=== PATIENT | male | born 1945 | race Caucasian/White ===

== ENCOUNTER 2018-10-08 00:12 | Inpatient (IN) ==
[2018-10-08 01:33] LABS: Bilirubin,Urine Negative (Negative); Clarity,Urine Clear (Clear); Color,Urine Yellow (Yellw/Straw); Glucose,Urine (UA) Negative (Negative); Leukocyte Esterase,Urine Negative (Negative); Nitrite,Urine Negative (Negative); Urobilinogen,Urine 0.2 mg/dL (Less than 2)
[2018-10-08 01:39] LABS: Hematocrit 42.9 % (39.0-51.0); Hemoglobin 14.7 gm/dL (13.0-17.0); Mean Corpuscular HGB Conc 34.3 % (32.0-36.0); Mean Corpuscular Hemoglobin 32.9 pg (27.0-34.0); Mean Corpuscular Volume 95.7 fL (80.0-100.0); Mean Platelet Volume 7.3 fL (7.0-11.0); Platelet Count 243 th/mm3 (150-450); Red Blood Count 4.49 mil/mm3 (4.50-5.90); Red Cell Distribution Width 12.4 % (11.6-17.2); White Blood Count 11.6 th/mm3 (4.0-11.0)
[2018-10-08 01:41] LABS: Chloride 104 meq/L (98-107); Potassium 4.3 meq/L (3.5-5.1); Sodium 137 meq/L (136-145)
[2018-10-08 01:44] LABS: Squamous Epithelial Cell,Urine 0-5 /hpf (0-5); WBC,Urine 0-5 /hpf (0-5)
[2018-10-08 01:44] LABS: Calcium 8.6 mg/dL (8.5-10.1)
[2018-10-08 01:45] LABS: Albumin 3.8 g/dL (3.4-5.0); Anion Gap 6 meq/L (5-15); Blood Urea Nitrogen 39 mg/dL (7-18); Carbon Dioxide 27.3 meq/L (21.0-32.0); Glucose,Random 122 mg/dL (74-106)
[2018-10-08] MEDS ORDERED: Ketorolac Inj 30 MG/ML (IVP) Vial IV.PUSH ONE (01:46)
--- NOTE | 2018-10-08 01:47 | ED ---
HPI General Chief complaint: Ear Stated complaint: Left ear pain Time Seen by Provider: 10/08/18 00:46 Source: patient Mode of arrival: ambulatory Limitations: no limitations History of Present Illness HPI narrative: Patient has had significant problem with left ear with infection and has had prolonged antibiotic and other treatment. Patient states pain is increasing in severity. Medical records reviewed Related Data Home Medications Medication Instructions Recorded Confirmed amlodipine 5 mg PO DAILY 10/08/18 10/08/18 atorvastatin 10 mg PO DAILY 10/08/18 10/08/18 benazepril 5 mg PO DAILY 10/08/18 10/08/18 fenofibrate 40 mg PO DAILY 10/08/18 10/08/18 gabapentin 600 mg PO DAILY 10/08/18 10/08/18 insulin aspart U-100 [Novolog 39 unit SUBCUT QPM 10/08/18 10/08/18 Flexpen U-100 Insulin] insulin glargine [Lantus U-100 10 unit SUBCUT TID PRN 10/08/18 10/08/18 Insulin] Allergies Allergy/AdvReac Type Severity Reaction Status Date / Time No Known Allergies Allergy Verified 10/08/18 00:56 Review of Systems ROS: all other systems reviewed are negative [facility] Medical History Medical History History of high blood pressure (Acute) History of high cholesterol (Acute) History of neuropathy (Acute) Hx of diabetes mellitus (Acute) Surgical History Surgical History History of bilateral knee replacement (Acute) Hx of spinal fusion (Acute) Social History Social History Substance History: No History of Abuse Smoking Status: Former smoker Tobacco Type: Cigarettes How Often Do You Have a Drink Containing Alcohol: Never Recent Travel in [facility] within the Last 8 Weeks: No Recent Out of Country Travel within the Last 8 Weeks: No Immunization History Tetanus Immunization: <5 Years Exam Narrative Exam Narrative: GENERAL: Alert and oriented SKIN: Focused skin assessment warm/dry. HEAD: Atraumatic. Normocephalic. Significant percussion tenderness to left mastoid EYES: Pupils equal and round. No scleral icterus. No injection or drainage. ENT: No nasal bleeding or discharge. Mucous membranes pink and moist. Erythematous eardrum with scar tissue NECK: Trachea midline. No JVD. CARDIOVASCULAR: Regular rate and rhythm. No murmur appreciated. RESPIRATORY: No accessory muscle use. Clear to auscultation. Breath sounds equal bilaterally. GASTROINTESTINAL: Abdomen soft, non-tender, nondistended. Hepatic and splenic margins not palpable. NEUROLOGICAL: Awake and alert. No obvious cranial nerve deficits. Motor grossly within normal limits. Normal speech. PSYCHIATRIC: Appropriate mood and affect; insight and judgment normal. Course Initial Documented Vital Signs Temperature 98.2 F 10/08/18 00:24 Pulse Rate 94 H 10/08/18 00:24 Respiratory Rate 18 10/08/18 00:24 Blood Pressure 182/90 H 10/08/18 00:24 Pulse Oximetry 96 10/08/18 00:24 Last Documented Vital Signs Temperature 98.2 F 10/08/18 00:24 Pulse Rate 86 10/08/18 02:27 Respiratory Rate 16 10/08/18 02:27 Blood Pressure 132/87 10/08/18 02:27 Pulse Oximetry 96 10/08/18 02:27 Medical Decision Making MDM Narrative Medical decision making narrative: Patient has mastoiditis and is being treated with IV antibiotics. Patient admitted with need for neurosurgeon and ENT consult. Medical Screen Exam Complete: Yes Emergency Medical Condition: Yes Lab Data Result diagrams: 10/08/18 01:20 10/08/18 01:20 Lab Results 10/08/18 10/08/18 10/08/18 Range/Units 01:15 01:20 01:20 CBC w Diff Slide review pending WBC 11.6 H (4.0-11.0) th/mm3 RBC 4.49 L (4.50-5.90) mil/mm3 Hgb 14.7 (13.0-17.0) gm/dL Hct 42.9 (39.0-51.0) % MCV 95.7 (80.0-100.0) fL MCH 32.9 (27.0-34.0) pg MCHC 34.3 (32.0-36.0) % RDW 12.4 (11.6-17.2) % Plt Count 243 (150-450) th/mm3 MPV 7.3 (7.0-11.0) fL WBC Differential Manual diff final Seg Neuts % (Manual) 78 H (16-70) % Lymphocytes % (Manual) 17 (9-44) % Monocytes % (Manual) 3 (0-8) % Eosinophils % (Manual) 2 (0-4) % Abs Neuts (Manual) 9.0 H (1.8-7.7) th/mm3 Differential Comment . Platelet Estimate Normal (Normal) Platelet Morphology Normal (Normal) RBC Morphology Normal (Normal) Sodium 137 (136-145) meq/L Potassium 4.3 (3.5-5.1) meq/L Chloride 104 (98-107) meq/L Carbon Dioxide 27.3 (21.0-32.0) meq/L Anion Gap 6 (5-15) meq/L BUN 39 H (7-18) mg/dL Creatinine 1.80 H (0.60-1.30) mg/dL Estimated GFR 37 L (>89) mL/min Random Glucose 122 H (74-106) mg/dL Calcium 8.6 (8.5-10.1) mg/dL Total Bilirubin 0.5 (0.2-1.0) mg/dL AST 26 (15-37) U/L ALT 27 (12-78) U/L Alkaline Phosphatase 43 L (45-117) U/L C-Reactive Protein 0.45 H (0.00-0.30) mg/dL Total Protein 7.4 (6.4-8.2) g/dL Albumin 3.8 (3.4-5.0) g/dL Urine Color Yellow (Yellw/Straw) Urine Clarity Clear (Clear) Urine pH 6.0 (5.0-8.5) Ur Specific [place] 1.020 (1.002-1.035) Urine Protein Negative (Neg-Trace) mg/dL Urine Glucose (UA) Negative (Negative) mg/dL Urine Ketones Negative (Negative) mg/dL Urine Occult Blood Small H (Negative) Urine Nitrate Negative (Negative) Urine Bilirubin Negative (Negative) Urine Urobilinogen 0.2 (Less than 2) mg/dL Ur Leukocyte Esterase Negative (Negative) Urine RBC 4-15 H (0-3) /hpf Urine WBC 0-5 (0-5) /hpf Ur Squamous Epith Cells 0-5 (0-5) /hpf Micro UA Comment Culture not ind Ur Microscopic Review Microscopic reviewed Urine Culture Comments Culture not ind Imaging Data Radiologist's impression: Temporal Bone CT 10/08/18 01:43 CONCLUSION: 1. Moderate severity partial opacification of the mastoid air cells on the left. Partial opacification of the external canal on the left with thickening of the left-sided tympanic membrane. Middle ear is clear. 2. Right-sided temporal bone within normal limits. 3. Frontal, sphenoid, ethmoid, and maxillary sinus disease Discharge Plan Discharge Disposition Patient Disposition: ED Admit(ED Internal Use Only) Discharge Condition Condition: Stable Discharge Order Discharge Orders: ED Use Only Admit Order (Routine); Ordered 10/08/18 Ordered By: Mt Petty Discharge Details Diagnosis: Acute mastoiditis Physicians Team ED Provider: Mt Petty Primary Care Provider: Mode Man Rxs /Orders / Referrals /Forms Prescriptions: No Action gabapentin 600 mg Tablet 600 mg PO DAILY RF: 0 insulin glargine [Lantus U-100 Insulin] 100 unit/mL Solution 10 unit SUBCUT TID PRN (Reason: Hyperglycemia) RF: 0 atorvastatin 10 mg Tablet 10 mg PO DAILY RF: 0 benazepril 5 mg Tablet 5 mg PO DAILY RF: 0 amlodipine 2.5 mg Tablet 5 mg PO DAILY RF: 0 insulin aspart U-100 [Novolog Flexpen U-100 Insulin] 100 unit/mL Insulin Pen 39 unit SUBCUT QPM RF: 0 fenofibrate 40 mg Tablet 40 mg PO DAILY RF: 0 Status ED Status: With Doctor
[2018-10-08 01:48] LABS: Alanine Aminotransferase 27 U/L (12-78); Aspartate Aminotransferase 26 U/L (15-37); C-Reactive Protein 0.45 mg/dL (0.00-0.30); Glomerular Filtration Rate 37 mL/min (>89)
[2018-10-08 01:50] LABS: Total Protein 7.4 g/dL (6.4-8.2)
[2018-10-08 01:51] LABS: Alkaline Phosphatase 43 U/L (45-117)
[2018-10-08 01:54] LABS: Eosinophils 2 % (0-4); Lymphocytes 17 % (9-44); Monocytes 3 % (0-8); RBC Morphology Normal (Normal)
[2018-10-08 01:55] LABS: Platelet Estimate Normal (Normal); Platelet Morphology Normal (Normal)
--- NOTE | 2018-10-08 03:05 | CT ---
EXAM DATE: 10/08/2018 2:30 AM EST AGE/SEX: 72 years / Male INDICATIONS: Mastoid disease. Left ear pain. CLINICAL DATA: This is the patient's initial encounter. Patient reports that signs and symptoms have been present for 1 day and indicates a pain score of 8/10. MEDICAL/SURGICAL HISTORY: . High blood pressure. High cholesterol. Neuropathy. Diabetes mellitus. . Bilateral knee replacement. Spinal fusion. RADIATION DOSE: 82.72 CTDI (mGy) COMPARISON: . TECHNIQUE: Thin section acquisition was performed without contrast in the coronal and axial planes u sing a multirow detector CT scanner. Using automated exposure control and adjustment of the mA and/o r kV according to patient size, radiation dose was kept as low as reasonably achievable to obtain opt imal diagnostic quality images. DICOM format image data is available electronically for review and c omparison. FINDINGS: RIGHT TEMPORAL BONE: Ossicles: The ossicles are intact. Mastoid Air Cells: Well aerated. No sclerotic or opacified air cells are seen. The aditus is intac t. Middle Ear: The epitympanum and hypotympanum are intact. Prussak's space and scutum are intact. The oval and round window is intact. Labyrinth: The cochlea and semicircular canals are normal in configuration without sclerosis. Internal Acoustic Canal: Normal in size without erosion. The cerebellar-pontine angle is intact. Jugular Fossa: Normal in size and position. Facial Canal: The tympanic, genu and descending portions are intact. External Acoustic Canal: The bony and cartilaginous portions are intact. Moderate severity partial opacification of the right frontal sinus. 1.4 cm right-sided sphenoid sinus polyp or retention cysts. Mild partial opacification of the ethmoid sinuses bilaterally and mucosal thickening of the maxillary sinuses bilaterally. 1.5 cm inferior anterior right maxillary sinus polyp or retention cyst. LEFT TEMPORAL BONE: Ossicles: The ossicles are intact. Mastoid Air Cells: Moderate severity partial opacification of the mastoid air cells on the left. Middle Ear: The epitympanum and hypotympanum are intact. Prussak's space and scutum are intact. The oval and round window is intact. Labyrinth: The cochlea and semicircular canals are normal in configuration without sclerosis. Internal Acoustic Canal: Normal in size without erosion. The cerebellar-pontine angle is intact. Jugular Fossa: Normal in size and position. Facial Canal: The tympanic, genu and descending portions are intact. External Acoustic Canal: External auditory canals partially opacified with apparent thickening of th e tympanic membrane. CONCLUSION: 1. Moderate severity partial opacification of the mastoid air cells on the left. Partial opacificati on of the external canal on the left with thickening of the left-sided tympanic membrane. Middle ear is clear. 2. Right-sided temporal bone within normal limits. 3. Frontal, sphenoid, ethmoid, and maxillary sinus disease Electronically signed by: Mt Dawson MD 10/08/2018 3:04 AM EST
[2018-10-08] MEDS ORDERED: Sod Chloride 0.9% Inj 1,000 ML IV.CONT SCH (03:45)
[2018-10-08] MEDS ORDERED: Dextrose 50% in Water 50 ML Vial IV.PUSH PRN (04:51)
[2018-10-08] MEDS ORDERED: Bisacodyl 10 MG Supp RECTAL PRN (05:08)
[2018-10-08] MEDS ORDERED: Acetaminophen 325 MG Tablet PO PRN (05:08)
[2018-10-08] MEDS: Clindamycin 900 mg/NS Premix 900 MG/50 ML PIGGYBACK IV.SIG SCH ×3 (05:52→21:00)
[2018-10-08] MEDS: Sod Chloride 0.9% Inj 1,000 ML IV.CONT SCH ×2 (05:52→16:26)
[2018-10-08] MEDS: Lisinopril 5 MG Tablet PO SCH (08:16)
[2018-10-08] MEDS: amLODIPine 5 MG Tablet PO SCH (08:17)
[2018-10-08] MEDS: Insulin Detemir Inj 1,000 UNIT/10 ML Vial SQ SCH ×2 (08:17→20:31)
--- NOTE | 2018-10-08 09:50 | P.HP ---
History of Present Illness Primary Care Physician: Mode Man MD Chief Complaint: Left ear pain History of Present Illness: 72-year-old male with known history of hypertension, hyperlipidemia, chronic kidney disease stage III, diabetes who presented to the hospital for evaluation of left ear pain. Patient states that his been experiencing left ear pain since the middle of June. Patient states that he went to urgent care center on July 21, 2018 in which he was given eardrops which did help temporarily but the pain did come back so he went and had reevaluation done. The patient did not get any better and approximately 5 weeks ago he had an appointment with Dr. Romeo, ENT, in which the patient indicates that he was giving eardrops and prednisone with improvement for 1 week. The patient states that the pain came back and then 1 week ago he went back for reevaluation was started on a prednisone Dosepak. Patient states that he finished pills yesterday and the last night he had severe left ear pain so he came to emergency department for evaluation. Patient had workup done with CT scan of the temporal bone which did show mastoiditis. It was recommended by the ER physician that the patient be admitted to the hospital for further evaluation, ENT consultation and management. ENT doctor contacted me this morning and indicated that the patient condition is beyond the scope of the hospital practice here. Patient will need to go to a teaching/tertiary hospital who can do a mastoidectomy. Case management was consulted to make arrangements for transfer. Presently patient still has palpable tenderness over the left posterior ear. Denies any fever, chills, sinusitis, rhinorrhea, cough, congestion. Inpatient Certification: I certify that the inpatient services were ordered in accordance with Medicare regulations governing the order. This includes certification that hospital inpatient services are reasonable and necessary and in the case of services not specified as inpatient-only under 42 CFR 419.22(n), that they are appropriately provided as inpatient services in accordance to with the 2-midnight benchmark under 43 CFR 412.3(e) Estimated Total Length of Stay (Days): 3 Plans for Post Hospital Care: Home Review of Systems All other systems reviewed negative except as stated in HPI Ears, Nose, Mouth, and Throat: Reports ear pain PMFSH - History History Provided By: Patient - Medical History Medical History: Medical History (Last Reviewed 10/08/18 @ 03:37 by Mt Petty MD) History of high blood pressure History of high cholesterol History of neuropathy Hx of diabetes mellitus - Surgical History Surgical History: Surgical History (Last Reviewed 10/08/18 @ 03:37 by Mt Petty MD) History of bilateral knee replacement Hx of spinal fusion - Family History Family History: Family History (Last Updated 10/08/18 @ 09:46 by GABY Collier) Mother Family history of heart attack Father Family history of diabetes mellitus - Tobacco History Second Hand Smoke Exposure: No Tobacco Use In Past 30 Days: No Smoking Status: Former smoker Tobacco Type: Cigarettes - Alcohol History How Often Do You Have a Drink Containing Alcohol: Never - Substance Use History Substance History: No History of Abuse - Travel History Recent Travel in the [place] Within the Last 8 Weeks: No Recent Travel Out of the Country Within the Last 8 Weeks: No - Immunization History Tetanus Immunization: <5 Years Hx Influenza Vaccine This Season: Yes Medications and Allergies Active Medications: Active Medications Acetaminophen (Tylenol) 650 mg PO Q4H PRN PRN Reason: Temp > 100.4 Al Hydroxide/Mg Hydroxide (Milk Of María Vences) 30 ml PO Q12H PRN PRN Reason: Mild Constipation Amlodipine Besylate (Norvasc) 5 mg PO DAILY [facility] Last Admin: 10/08/18 08:17 Dose: 5 mg Atorvastatin Calcium (Lipitor) 10 mg PO DAILY [facility] Last Admin: 10/08/18 08:17 Dose: 10 mg Bisacodyl (Dulcolax Supp) 10 mg RECTAL DAILY PRN PRN Reason: SEVERE CONSITIPATION Dextrose (D50w Vial) 50 ml IV.PUSH UNSCH PRN PRN Reason: PER HYPOGLYCEMIA PROTOCOL Fenofibrate (Tricor) 48 mg PO DAILY [facility] Glucagon (Glucagon Inj) 1 mg OTHER PRN PRN PRN Reason: for Hypoglycemia Protocol Levofloxacin/Dextrose (Levaquin 750 Mg Premix Inj) 150 mls @ 100 mls/hr IV.SIG Q48H [facility] Clindamycin/Sodium Chloride (Cleocin 900 Mg/Ns Premix) 900 mg in 50 mls @ 100 mls/hr IV.SIG Q8H [facility] Last Infusion: 10/08/18 06:26 Dose: Infused Sodium Chloride (Ns Inj) 1,000 mls @ 100 mls/hr IV.CONT .Q10H [facility] Last Admin: 10/08/18 05:52 Dose: 100 mls/hr Insulin Aspart (Novolog Insulin Correctional Sugar Inj) 0 unit SQ ACHS [facility]; Protocol Insulin Detemir (Levemir Inj) 5 unit SQ BID [facility] Last Admin: 10/08/18 08:17 Dose: 5 unit Lactulose (Lactulose Liq) 30 ml PO DAILY PRN PRN Reason: SEVERE CONSITIPATION Lisinopril (Prinivil) 5 mg PO DAILY [facility] Last Admin: 10/08/18 08:16 Dose: 5 mg Ondansetron HCl (Zofran Inj) 4 mg IV.PUSH Q6H PRN PRN Reason: NAUSEA OR VOMITING Sennosides (Senokot) 17.2 mg PO Q12H PRN PRN Reason: Moderate Constipation Sodium Chloride (Ns Flush) 2 ml IV.FLUSH BID [facility] Sodium Chloride (Ns Flush) 2 ml IV.FLUSH PRN PRN PRN Reason: FLUSH AFTER USING IV ACCESS Allergies Allergy/AdvReac Type Severity Reaction Status Date / Time No Known Allergies Allergy Verified 10/08/18 00:56 Home Medications Medication Instructions Recorded Confirmed Type amlodipine 5 mg PO DAILY 10/08/18 10/08/18 History atorvastatin 10 mg PO DAILY 10/08/18 10/08/18 History benazepril 5 mg PO DAILY 10/08/18 10/08/18 History fenofibrate 40 mg PO DAILY 10/08/18 10/08/18 History gabapentin 600 mg PO DAILY 10/08/18 10/08/18 History insulin aspart U-100 [Novolog 39 unit SUBCUT QPM 10/08/18 10/08/18 History Flexpen U-100 Insulin] insulin glargine [Lantus U-100 10 unit SUBCUT TID PRN 10/08/18 10/08/18 History Insulin] Exam Vital signs: Vital Signs 10/08/18 00:24 10/08/18 02:27 10/08/18 05:36 Temperature 98.2 F Pulse Rate 94 H 86 67 Respiratory Rate 18 16 16 Blood Pressure 182/90 H 132/87 138/90 Pulse Oximetry 96 96 96 10/08/18 06:00 Temperature 96 F L Pulse Rate 62 Respiratory Rate 20 Blood Pressure 127/73 Pulse Oximetry 96 Intake & Output 10/07/18 10/08/18 10/08/18 18:59 06:59 18:59 Intake Total 900 / 900 Balance 900 / 900 Weight 120 kg Intake: IV 900 / 900 NS Inj 1,000 ML @ 250 mls/hr IV 600 / 600 .CONT .Q4H [facility]ATH[facility] Rx#:[id number] Cleocin 900 mg/NS Premix 900 mg 50 / 50 In 50 ml @ 100 mls/hr IV.SIG Q8H [facility] Rx#:[id number] Levaquin 750 mg Premix Inj 150 150 / 150 ML @ 100 mls/hr IV.SIG ONCE ONE Rx#:[id number] Rocephin Inj 2,000 MG In NS Inj 100 / 100 100 ML @ 200 mls/hr IV.SIG ONCE ONE Rx#:[id number] Other: Date of Last Bowel Movement 10/07/18 10/07/18 Weight On Admission 120 kg Narrative: GENERAL: Well-developed, well-nourished, in no acute distress. alert and orientated HEENT: Head is normocephalic without any lesions or masses noted. Facial features are symmetric. Eyes: Pupils equal round reactive to light. Extraocular muscles are intact. Conjunctivae were clear. Oropharyngeal: Pharynx without any erythema edema. Tongue is midline without deviation. Buccal mucosa is moist without any masses or lesions. Palpable tenderness noted over the left mastoid. No tragal tenderness NECK: Supple without any masses. Trachea midline no deviation. No JVD, no bruits are appreciated CARDIAC: Regular rhythm, regular rate. S1/S2 are heard. No murmurs gallops or rubs. LUNGS: Clear to auscultation bilaterally. No wheeze, rhonchi or rales. No use of accessory muscles on inspiration or expiration. ABDOMEN: Soft, nontender. Nondistended. Bowel sounds heard in all 4 quadrants. No organomegaly or masses. Negative rebound, negative guarding EXTREMITIES: No edema, pulses are equal bilaterally. No cyanosis or clubbing NEUROLOGY: Mood and affect appear appropriate. Cranial nerves II through XII grossly intact. Muscle strength 5/5 in upper and lower extremities bilaterally. Deep tendon reflexes are 2+ in upper and lower extremities bilaterally. Results - Labs CBC & Chem 7: 10/08/18 01:20 10/08/18 01:20 Labs: Laboratory Results - last 24 hr 10/08/18 10/08/18 10/08/18 01:15 01:20 01:20 CBC w Diff Slide review pending WBC 11.6 H RBC 4.49 L Hgb 14.7 Hct 42.9 MCV 95.7 MCH 32.9 MCHC 34.3 RDW 12.4 Plt Count 243 MPV 7.3 WBC Differential Manual diff final Seg Neuts % (Manual) 78 H Lymphocytes % (Manual) 17 Monocytes % (Manual) 3 Eosinophils % (Manual) 2 Abs Neuts (Manual) 9.0 H Differential Comment . Platelet Estimate Normal Platelet Morphology Normal RBC Morphology Normal Sodium 137 Potassium 4.3 Chloride 104 Carbon Dioxide 27.3 Anion Gap 6 BUN 39 H Creatinine 1.80 H Estimated GFR 37 L POC Glucose Random Glucose 122 H Calcium 8.6 Total Bilirubin 0.5 AST 26 ALT 27 Alkaline Phosphatase 43 L C-Reactive Protein 0.45 H Total Protein 7.4 Albumin 3.8 Urine Color Yellow Urine Clarity Clear Urine pH 6.0 Ur Specific [place] 1.020 Urine Protein Negative Urine Glucose (UA) Negative Urine Ketones Negative Urine Occult Blood Small H Urine Nitrate Negative Urine Bilirubin Negative Urine Urobilinogen 0.2 Ur Leukocyte Esterase Negative Urine RBC 4-15 H Urine WBC 0-5 Ur Squamous Epith Cells 0-5 Micro UA Comment Culture not ind Ur Microscopic Review Microscopic reviewed Urine Culture Comments Culture not ind 10/08/18 07:02 CBC w Diff WBC RBC Hgb Hct MCV MCH MCHC RDW Plt Count MPV WBC Differential Seg Neuts % (Manual) Lymphocytes % (Manual) Monocytes % (Manual) Eosinophils % (Manual) Abs Neuts (Manual) Differential Comment Platelet Estimate Platelet Morphology RBC Morphology Sodium Potassium Chloride Carbon Dioxide Anion Gap BUN Creatinine Estimated GFR POC Glucose 149 H Random Glucose Calcium Total Bilirubin AST ALT Alkaline Phosphatase C-Reactive Protein Total Protein Albumin Urine Color Urine Clarity Urine pH Ur Specific [place] Urine Protein Urine Glucose (UA) Urine Ketones Urine Occult Blood Urine Nitrate Urine Bilirubin Urine Urobilinogen Ur Leukocyte Esterase Urine RBC Urine WBC Ur Squamous Epith Cells Micro UA Comment Ur Microscopic Review Urine Culture Comments - Imaging Impressions Temporal Bone CT 10/08/18 01:43 CONCLUSION: 1. Moderate severity partial opacification of the mastoid air cells on the left. Partial opacification of the external canal on the left with thickening of the left-sided tympanic membrane. Middle ear is clear. 2. Right-sided temporal bone within normal limits. 3. Frontal, sphenoid, ethmoid, and maxillary sinus disease Caprini VTE Risk Assessment Caprini VTE Risk Assessment: Moderate/High Risk (score >= 2) Caprini Risk Assessment Model: Point Value = 1 Point Value = 2 Point Value = 3 Point Value = 5 Age 41-60 Minor surgery BMI > 25 kg/m2 Swollen legs Varicose veins or History of unexplained or recurrent spontaneous Oral contraceptives or hormone replacement Sepsis (< 1 month) Serious lung disease, including pneumonia (< 1 month) Abnormal pulmonary function Acute myocardial infarction Congestive heart failure (< 1 month) History of inflammatory bowel disease Medical patient at bed rest Age 61-74 Arthroscopic surgery Major open surgery (> 45 min) Laparoscopic surgery (> 45 min) Malignancy Confined to bed (> 72 hours) Immobilizing plaster cast Central venous access Age >= 75 History of VTE Family history of VTE Factor V Leiden Prothrombin [id number] Lupus anticoagulant Anticardiolipin antibodies Elevated serum homocysteine Heparin-induced thrombocytopenia Other congenital or acquired thrombophilia Stroke (< 1 month) Elective arthroplasty Hip, pelvis, or leg fracture Acute spinal cord injury (< 1 month) Prophylaxis Regimen: Total Risk Factor Score Risk Level Prophylaxis Regimen 0-1 Low Early ambulation 2 Moderate Order ONE of the following: *Sequential Compression Device (SCD) *Heparin 5000 units SQ BID 3-4 Higher Order ONE of the following medications: *Heparin 5000 units SQ TID *Enoxaparin/Lovenox 40 mg SQ daily (WT < 150 kg, CrCl > 30 mL/min) *Enoxaparin/Lovenox 30 mg SQ daily (WT < 150 kg, CrCl > 10-29 mL/min) *Enoxaparin/Lovenox 30 mg SQ BID (WT < 150 kg, CrCl > 30 mL/min) AND/OR *Sequential Compression Device (SCD) 5 or more Highest Order ONE of the following medications: *Heparin 5000 units SQ TID (Preferred with Epidurals) *Enoxaparin/Lovenox 40 mg SQ daily (WT < 150 kg, CrCl > 30 mL/min) *Enoxaparin/Lovenox 30 mg SQ daily (WT < 150 kg, CrCl > 10-29 mL/min) *Enoxaparin/Lovenox 30 mg SQ BID (WT < 150 kg, CrCl > 30 mL/min) AND *Sequential Compression Device (SCD) Assessment and Plan - Plan Left mastoiditis -CT scan does show left mastoiditis. -Discussed with ENT physician Dr. Sanchez, he indicated that he spoke with Dr. Barrientos radiologist to stated that this is a tsering yakov, coalesced mastoiditis that is going require transfer to a teaching/tertiary hospital for mastoidectomy. -Patient currently is on Levaquin and clindamycin -Case management consulted to arrange transfer to [facility] for further management Diabetes -Accu-Cheks with sliding scale insulin -Diabetic diet Hypertension, hyperlipidemia, -Continue home medications Chronic kidney disease stage III -Continue monitor renal function -Avoid nephrotoxins -Adjust medications for renal function DVT prevention -Sequential compression devices Discharge Planning: mobility architect manager consulted to arrange transfer to [facility] for appropriate management
[2018-10-08] MEDS: Insulin NovoLOG Aspart Correctional Sugar Inj SQ SCH ×4 (10:01→20:31)
[2018-10-08] MEDS: Fenofibrate 48 MG Tablet PO SCH (10:02)
[2018-10-08 20:32] VITALS: RESP 18
[2018-10-08] MEDS ORDERED: oxyCODONE/Acetaminophen 10/325 Tablet PO ONE (20:43)
[2018-10-09] MEDS: Sod Chloride 0.9% Inj 1,000 ML IV.CONT SCH (04:18)
[2018-10-09] MEDS: Clindamycin 900 mg/NS Premix 900 MG/50 ML PIGGYBACK IV.SIG SCH ×2 (05:23→15:58)
[2018-10-09 06:12] LABS: Baso % (Auto) 0.5 % (0.0-2.0); Eos # (Auto) 0.1 th/mm3 (0.0-0.4); Eos % (Auto) 1.4 % (0.0-4.0); Hematocrit 38.5 % (39.0-51.0); Hemoglobin 13.1 gm/dL (13.0-17.0); Lymph # (Auto) 1.2 th/mm3 (1.0-4.8); Lymph % (Auto) 17.3 % (9.0-44.0); Mean Corpuscular HGB Conc 34.1 % (32.0-36.0); Mean Corpuscular Hemoglobin 32.8 pg (27.0-34.0); Mean Corpuscular Volume 96.1 fL (80.0-100.0); Mean Platelet Volume 7.3 fL (7.0-11.0); Mono # (Auto) 0.6 th/mm3 (0.0-0.9); Mono % (Auto) 9.6 % (0.0-8.0); Neut # (Auto) 4.8 th/mm3 (1.8-7.7); Neut % (Auto) 71.2 % (16.0-70.0); Platelet Count 185 th/mm3 (150-450); Red Blood Count 4.01 mil/mm3 (4.50-5.90); Red Cell Distribution Width 12.2 % (11.6-17.2); White Blood Count 6.7 th/mm3 (4.0-11.0)
[2018-10-09 06:16] LABS: Chloride 105 meq/L (98-107); Potassium 3.9 meq/L (3.5-5.1); Sodium 140 meq/L (136-145)
[2018-10-09 06:23] LABS: Calcium 8.2 mg/dL (8.5-10.1)
[2018-10-09 06:24] LABS: Albumin 3.2 g/dL (3.4-5.0); Anion Gap 6 meq/L (5-15); Blood Urea Nitrogen 33 mg/dL (7-18); Carbon Dioxide 28.6 meq/L (21.0-32.0); Glucose,Random 181 mg/dL (74-106)
[2018-10-09 06:27] LABS: Alanine Aminotransferase 20 U/L (12-78); Aspartate Aminotransferase 15 U/L (15-37); Glomerular Filtration Rate 50 mL/min (>89)
[2018-10-09 06:28] LABS: Total Protein 6.3 g/dL (6.4-8.2)
[2018-10-09 06:30] LABS: Alkaline Phosphatase 39 U/L (45-117)
[2018-10-09] MEDS: Lisinopril 5 MG Tablet PO SCH (09:18)
[2018-10-09] MEDS: amLODIPine 5 MG Tablet PO SCH (09:18)
[2018-10-09] MEDS: Fenofibrate 48 MG Tablet PO SCH (09:19)
[2018-10-09] MEDS: Insulin NovoLOG Aspart Correctional Sugar Inj SQ SCH ×2 (09:20→12:18)
[2018-10-09] MEDS: Insulin Detemir Inj 1,000 UNIT/10 ML Vial SQ SCH (09:28)
[2018-10-09] MEDS ORDERED: hydroCHLOROthiazide 25 MG Tablet PO SCH (12:00)
[2018-10-09] MEDS ORDERED: Metoprolol Tartrate 25 MG Tablet PO SCH (12:00)
[2018-10-09] MEDS ORDERED: Gabapentin 100 MG Capsule PO SCH ×2 (12:00→21:00)
--- NOTE | 2018-10-09 12:30 | P.PNIM ---
Subjective Interval history: Follow-up acute mastoiditis. Patient seen and examined, sitting in chair comfortably no apparent distress. At this time patient's pain is well controlled. Pain regimen has been effective. Awaiting callback from vest backer from [facility] to determine further plan. Patient is eating well without any nausea and vomiting. Continue on antibiotics. Afebrile. Leukocytosis improved. We will continue to monitor. Physical Exam Vital signs: Vital Signs 10/08/18 16:00 10/08/18 17:05 10/08/18 20:00 Temperature 96.6 F L 97.2 F L Pulse Rate 83 Respiratory Rate 20 20 18 Blood Pressure 137/95 H 165/89 H Pulse Oximetry 94 L 95 10/09/18 00:00 10/09/18 08:00 Temperature 97.7 F 97.6 F Pulse Rate 81 75 Respiratory Rate 18 18 Blood Pressure 142/87 H 134/80 Pulse Oximetry 95 94 L Intake & Output 10/08/18 10/09/18 10/09/18 18:59 06:59 18:59 Intake Total 1949 850 / 850 Output Total 30 / 30 Balance 1949 820 / 820 Weight 120 kg Intake: IV 1050 / 1050 850 / 850 NS Inj 1,000 ML @ 100 mls/hr IV 1000 / 1000 750 / 750 .CONT .Q10H SATHYA Rx#:[id number] Cleocin 900 mg/NS Premix 900 mg 50 / 50 100 / 100 In 50 ml @ 100 mls/hr IV.SIG Q8H SATHYA Rx#:[id number] Oral 900 / 900 Output: Urine 30 / 30 Other: Date of Last Bowel Movement 10/07/18 # Bowel Movements 2 Narrative: GENERAL: Well-developed, well-nourished, in no acute distress. alert and orientated HEENT: Head is normocephalic without any lesions or masses noted. Facial features are symmetric. Eyes: Pupils equal round reactive to light. Extraocular muscles are intact. Conjunctivae were clear. Oropharyngeal: Pharynx without any erythema edema. Tongue is midline without deviation. Buccal mucosa is moist without any masses or lesions. Palpable tenderness noted over the left mastoid. No tragal tenderness NECK: Supple without any masses. Trachea midline no deviation. No JVD, no bruits are appreciated CARDIAC: Regular rhythm, regular rate. S1/S2 are heard. No murmurs gallops or rubs. LUNGS: Clear to auscultation bilaterally. No wheeze, rhonchi or rales. No use of accessory muscles on inspiration or expiration. ABDOMEN: Soft, nontender. Nondistended. Bowel sounds heard in all 4 quadrants. No organomegaly or masses. Negative rebound, negative guarding EXTREMITIES: No edema, pulses are equal bilaterally. No cyanosis or clubbing NEUROLOGY: Mood and affect appear appropriate. Cranial nerves II through XII grossly intact. Muscle strength 5/5 in upper and lower extremities bilaterally. Deep tendon reflexes are 2+ in upper and lower extremities bilaterally. Results - Labs CBC & Chem 7: 10/09/18 05:10 10/09/18 05:10 Laboratory Results - last 24 hr 10/08/18 10/08/18 10/09/18 16:58 20:21 05:10 CBC w Diff Auto diff final WBC 6.7 RBC 4.01 L Hgb 13.1 Hct 38.5 L MCV 96.1 MCH 32.8 MCHC 34.1 RDW 12.2 Plt Count 185 MPV 7.3 Neut % (Auto) 71.2 H Lymph % (Auto) 17.3 Stephens % (Auto) 9.6 H Eos % (Auto) 1.4 Baso % (Auto) 0.5 Neut # (Auto) 4.8 Lymph # (Auto) 1.2 Stephens # (Auto) 0.6 Eos # (Auto) 0.1 Baso # (Auto) 0.0 WBC Differential . Differential Comment . Sodium Potassium Chloride Carbon Dioxide Anion Gap BUN Creatinine Estimated GFR POC Glucose 160 H 213 H Random Glucose Calcium Total Bilirubin AST ALT Alkaline Phosphatase Total Protein Albumin 10/09/18 10/09/18 10/09/18 05:10 07:26 11:41 CBC w Diff WBC RBC Hgb Hct MCV MCH MCHC RDW Plt Count MPV Neut % (Auto) Lymph % (Auto) Stephens % (Auto) Eos % (Auto) Baso % (Auto) Neut # (Auto) Lymph # (Auto) Stephens # (Auto) Eos # (Auto) Baso # (Auto) WBC Differential Differential Comment Sodium 140 Potassium 3.9 Chloride 105 Carbon Dioxide 28.6 Anion Gap 6 BUN 33 H Creatinine 1.40 H Estimated GFR 50 L POC Glucose 154 H 210 H Random Glucose 181 H Calcium 8.2 L Total Bilirubin 0.7 AST 15 ALT 20 Alkaline Phosphatase 39 L Total Protein 6.3 L D Albumin 3.2 L D Microbiology 10/08/18 01:25 Blood - Peripheral Aerobic Blood Culture - Preliminary No growth in 1 day 10/08/18 01:25 Blood - Peripheral Anaerobic Blood Culture - Preliminary No growth in 1 day 10/08/18 01:20 Blood - Peripheral Aerobic Blood Culture - Preliminary No growth in 1 day 10/08/18 01:20 Blood - Peripheral Anaerobic Blood Culture - Preliminary No growth in 1 day Assessment and Plan - Assessment (1) Acute mastoiditis Code(s): H70.009 - Acute mastoiditis without complications, unspecified ear Status: Acute - Plan Left mastoiditis -CT scan does show left mastoiditis. -It was discussed prior with ENT physician Dr. Sanchez, he indicated that he spoke with Dr. Barrientos radiologist to stated that this is a tsering yakov, coalesced mastoiditis that is going require transfer to a [facility] for mastoidectomy. Supposedly CM has spoken with radiologist/vest backer Dr. Dozier at [facility] who had declined the transfer after reviewing films indicating it may just be OM. Awaiting call back to personally speak to specialist to determine plan. At this time patient is agreeable to plan and stable. -Patient currently is on Levaquin and clindamycin, will continue. Leukocytosis has improved overnight. Afebrile. -Case management consulted and has been assisting. -Pain control with [place] as needed per pain scale. Diabetes -Accu-Cheks with sliding scale insulin -Diabetic diet Hypertension, hyperlipidemia, -Continue home medications Chronic kidney disease stage III -Continue monitor renal function, improved overnight. -Avoid nephrotoxins. -Adjust medications for renal function. DVT prevention -Sequential compression devices (1) Acute mastoiditis Qualifiers: Laterality: left Qualified Code(s): H70.002 - Acute mastoiditis without complications, left ear
[2018-10-09 12:58] VITALS: BP 153/94; PULSE 83; TEMP 97.9; O2SAT 863
[2018-10-09] MEDS ORDERED: Famotidine 20 MG Tablet PO SCH (21:00)
[2018-10-09] MEDS ORDERED: FIBER PO SCH (21:00)
== END 2018-10-09 18:06 | disposition home or self-care (01) ==
LOC: PHED 00:12 → PHEDA 04:52 → PH3 05:45
PROVIDERS: ADMIT Hospitalist; ATTEND Hospitalist